=== PATIENT | male | born 1970 | race African-American/Black ===

== ENCOUNTER 2020-09-05 13:41 | Emergency (ER) | payer OTHER ==
[~2020-09-05] VITALS: Ht 177.8 cm; Wt 70.0 kg
[2020-09-05] MEDS ORDERED: IV NORMAL SALINE 1000ML BAG 1,000 ML IV ONE (14:00)
[2020-09-05 14:01] LABS: BASO # 0.1 x10^3/uL (0.0-0.2); BASO % 2 % (0-3); EOS % 1 % (0-3); LYMPH % 35 % (24-48); MEAN CORPUSCULAR HEMOGLOBIN 31 pg (25-35); MEAN CORPUSCULAR HGB CONC 34 g/dL (31-37); MEAN CORPUSCULAR VOLUME 91 fL (79-100); MONO # 0.5 x10^3/uL (0.0-1.1); MONO % 16 % (0-9); NEUT # 1.4 x10^3/uL (1.8-7.7); NEUT % 46 % (31-73); PLATELET COUNT 182 x10^3/uL (140-400); RED BLOOD COUNT 3.85 x10^6/uL (4.30-5.70); RED CELL DISTRIBUTION WIDTH 19.3 % (11.5-14.5); WHITE BLOOD COUNT 2.9 x10^3/uL (4.0-11.0)
--- NOTE | 2020-09-05 14:01 | ED.ADGEN ---
General Adult HPI: HPI: Patient is a 50 year old male coming in via EMS for chest pain. Patient's neighbors actually called EMS to this is having difficulty getting into his department. Patient's history is inconsistent likely due to alcohol intoxicati on. Says it is a cramping pain around the sternum and a little bit to the left. States it is worse with taking a deep breath. Patient originally told EMS the pain had been there for about 2 hours, then told us it been for 1.5 days, then state is been going on intermittently for weeks.. Also some epigastric pain. Patient states he had to 12 days this morning and tries to drink at least every other day, has not been drinking daily due to financial reasons. Patient states he smokes cigars, and occasional marijuana but nothing recently. Denies any other drugs. Has a history of hypertension and missed his appointment yesterday to get a refill on his blood pressure medications. Denies any history of diabetes, but has a family history. Review of Systems: Review of Systems: All other systems within normal limits except for as noted in the HPI Current Medications: Current Medications Medications (Trade) Dose Ordered Sig/Trisha Start Time Stop Time Status Last Admin Dose Admin Aspirin (Aspirin Chewable) 324 mg 1X ONCE 09/05/20 15:00 09/05/20 15:01 DC 09/05/20 15:14 324 MG Dexamethasone Sodium Phosphate (Decadron) 10 mg 1X ONCE 09/05/20 16:30 09/05/20 16:31 DC 09/05/20 16:48 10 MG Info (CONTRAST GIVEN -- Rx MONITORING) 1 each PRN DAILY PRN 09/05/20 14:45 09/05/20 17:21 DC Iohexol (Omnipaque 350 Mg/ml) 100 ml 1X ONCE 09/05/20 14:45 09/05/20 14:46 DC 09/05/20 14:45 100 ML Sodium Chloride 1,000 ml @ 1,000 mls/hr 1X ONCE 09/05/20 14:00 09/05/20 14:59 DC 09/05/20 15:14 1,000 MLS/HR Allergies: Allergies: Allergies Coded Allergies Type Severity Reaction Last Updated Verified No Known Drug Allergies 09/05/20 No Physical Exam: PE: Constitutional: Well developed, well nourished, no acute distress, non-toxic appearance. [] HENT: Normocephalic, atraumatic, bilateral external ears normal, nose normal. [] Eyes: PERRLA, conjunctiva normal, no discharge. [] Neck: No rigidity, supple, no stridor. [] Cardiovascular: Regular rate and rhythm, brisk cap refill [] Lungs & Thorax: Non labored symmetric respirations, no tachypnea or respiratory distress [] Abdomen: Soft, nondistended. Skin: Warm, dry, no erythema, no rash. [] Back: Unremarkable Extremities: No deformities, range of motion grossly intact, no lower extremity edema [] Neurologic: Alert and oriented X 3, no focal deficits noted. [] Psychologic: Affect normal, judgement normal, mood normal. [] Current Patient Data: Labs: Laboratory Tests Test 09/05/20 13:50 White Blood Count 2.9 x10^3/uL (4.0-11.0) L Red Blood Count 3.85 x10^6/uL (4.30-5.70) L Hemoglobin 12.0 g/dL (13.0-17.5) L Hematocrit 35.0 % (39.0-53.0) L Mean Corpuscular Volume 91 fL (79-100) Mean Corpuscular Hemoglobin 31 pg (25-35) Mean Corpuscular Hemoglobin Concent 34 g/dL (31-37) Red Cell Distribution Width 19.3 % (11.5-14.5) H Platelet Count 182 x10^3/uL (140-400) Neutrophils (%) (Auto) 46 % (31-73) Lymphocytes (%) (Auto) 35 % (24-48) Monocytes (%) (Auto) 16 % (0-9) H Eosinophils (%) (Auto) 1 % (0-3) Basophils (%) (Auto) 2 % (0-3) Neutrophils # (Auto) 1.4 x10^3/uL (1.8-7.7) L Lymphocytes # (Auto) 1.0 x10^3/uL (1.0-4.8) Monocytes # (Auto) 0.5 x10^3/uL (0.0-1.1) Eosinophils # (Auto) 0.0 x10^3/uL (0.0-0.7) Basophils # (Auto) 0.1 x10^3/uL (0.0-0.2) D-Dimer (Nicky) 0.70 ug/mlFEU (0.00-0.50) H Sodium Level 139 mmol/L (136-145) Potassium Level 3.7 mmol/L (3.5-5.1) Chloride Level 101 mmol/L (98-107) Carbon Dioxide Level 22 mmol/L (21-32) Anion Gap 16 (6-14) H Blood Urea Nitrogen 3 mg/dL (8-26) L Creatinine 0.6 mg/dL (0.7-1.3) L Estimated GFR (Cockcroft-Gault) 142.6 BUN/Creatinine Ratio 5 (6-20) L Glucose Level 84 mg/dL (70-99) Calcium Level 8.7 mg/dL (8.5-10.1) Phosphorus Level 4.4 mg/dL (2.6-4.7) Magnesium Level 1.8 mg/dL (1.8-2.4) Total Bilirubin 0.2 mg/dL (0.2-1.0) Aspartate Amino Transferase (AST) 233 U/L (15-37) H Alanine Aminotransferase (ALT) 94 U/L (16-63) H Alkaline Phosphatase 84 U/L (46-116) Troponin I Quantitative < 0.017 ng/mL (0.000-0.055) YS-Soq-Y-Type Natriuretic Peptide 23 pg/mL (0-124) Total Protein 7.8 g/dL (6.4-8.2) Albumin 3.5 g/dL (3.4-5.0) Albumin/Globulin Ratio 0.8 (1.0-1.7) L Lipase 116 U/L (73-393) Ethyl Alcohol Level 352 mg/dL (0-10) H Laboratory Tests 09/05/20 13:50 Laboratory Tests 09/05/20 13:50 Vital Signs: Vital Signs Date Time Temp Pulse Resp B/P (MAP) Pulse Ox O2 Delivery O2 Flow Rate FiO2 09/05/20 16:23 97 18 124/79 (94) 98 Room Air 09/05/20 13:42 98.6 98.6 EKG: EKG: Sinus rhythm, heart rate 90; left axis deviation, right ventricular hypertrophy pattern no ST elevation or depression. [] Heart Score: C/O Chest Pain: Yes HEART Score for Chest Pain: HEART Score for Chest Pain Response (Comments) Value History Moderately Suspicious 1 ECG Nonspecific Repolarizatio 1 Age >45 - < 65 1 Risk Factors 1 or 2 Risk Factors 1 Troponin < Normal Limit 0 Total 4 Risk Factors: Risk Factors: DM, Current or recent (<one month) smoker, HTN, HLP, family history of CAD, obesity. Risk Scores: Score 0 - 3: 2.5% MACE over next 6 weeks - Discharge Home Score 4 - 6: 20.3% MACE over next 6 weeks - Admit for Clinical Observation Score 7 - 10: 72.7% MACE over next 6 weeks - Early Invasive Strategies Radiology/Procedures: Radiology/Procedures: [facility] [address] [place] [address] IMAGING REPORT Signed PATIENT: JEOVANNY BACA ACCOUNT: [id number] : 1970 LOCATION: ER AGE: 50 SEX: M EXAM STATUS: REG ER ORD. PHYSICIAN: ZELDA VIVEROS MD REASON: chest pain PROCEDURE: CT ANGIOGRAPHY CHEST Examination: CT angiography chest with IV contrast HISTORY: History of chest pain Comparison: None available. TECHNIQUE: Axial CT angiographic images of chest were performed with IV contrast. Coronal and sagittal 3-D MIP reformats are performed Exposure: One or more of the following individualized dose reduction techniques were utilized for this examination: 1. Automated exposure control 2. Adjustment of the mA and/or kV according to patient size 3. Use of iterative reconstruction technique FINDINGS: The visualized thyroid gland grossly appears unremarkable. The central airways are patent. The ascending aorta measures 3.3 cm in transverse dimension. No evidence of filling defect identified in the main pulmonary arterial trunk and right and left main pulmonary arteries and visualized lobar, segmental branches of the pulmonary arteries. Faint groundglass opacities bilateral lungs throughout could be a small airway disease or infiltrates with bibasilar lung atelectasis or infiltrates. The visualized spleen grossly appears unremarkable. 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 No evidence of lytic bony destructive lesion. IMPRESSION: 1. No evidence of pulmonary embolism. 2. Faint groundglass opacities bilateral lungs throughout could be a small airway disease or aspiration or infiltrates with bibasilar lung atelectasis or infiltrates . Follow-up to resolution. 3. 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 Electronically signed by: Jose Colón MD (09/05/2020 4:00 PM) [id number] DICTATED and SIGNED BY: JOSE COLÓN MD DATE: 09/05/20 [id number] [] Course & Med Decision Making: Course & Med Decision Making Pertinent Labs and Imaging studies reviewed. (See chart for details) [] Dragon Disclaimer: Dragon Disclaimer: This electronic medical record was generated, in whole or in part, using a voice recognition dictation system. Departure Departure Impression: Primary Impression: Atypical pneumonia Additional Impression: Person under investigation for COVID-19 Disposition: 01 HOME / SELF CARE / HOMELESS Condition: STABLE Additional Instructions: You have been tested for or diagnosed with COVID-19. It is an infection caused by a new type of coronavirus. COVID-19 will cause cold-like or mild flu symptoms in most. It can cause more severe symptoms like problems breathing in some. There is no treatment for COVID-19. The body will clear the infection over time. Self-care will help to ease discomfort. Steps to Take: Self-Care Rest as needed. Healthy habits may help you feel better. Steps include: Choose healthy foods including fruits and vegetables. Drink water throughout the day. Get plenty of sleep each night. If you smoke, try to quit. It may ease breathing. Avoid alcohol. Keep Others Healthy The virus can spread to others. Droplets are released every time you sneeze or cough. The droplets can get into the mouth, nose, or eyes of people near you and lead to infection. To lower the chances of spreading COVID-19 to others: Stay at home until your doctor has said it is safe to leave. If you tested positive this will mean staying isolated until both of the following are true: At least 7 days have passed since the start of illness. You are free of fever for at least 72 hours without the use of medicine. During this time: - Avoid public areas, events, or transportation. Do not return to work or school until your doctor has said it is safe to do so. - Call ahead if you need to go to a medical center. Let them know you may have COVID-19. It will help them guide you where to go. They may also ask you to wear a facemask when you come to the office. - If you call for emergency medical services, let them know you may have COVID- 19. While at home: - Try to avoid close contact with others. Stay about 6 feet away. - If possible, spend most of your time in a separate room from others. - Use a face mask if you will be in close contact with others such as sharing a room or vehicle. - Have someone wipe down common surfaces in the home. Use household overhead cleaner maintainer every day on areas like doorknobs, counters, or sinks. - Cough or sneeze into a tissue. Throw the tissue away right after use. If a tissue is not available, cough or sneeze into your elbow. - Wash your hands often. Wash them after sneezing or coughing. Use soap and water and wash for at least 20 seconds. Alcohol based hand house cleaner can be used if soap and water is not available. - Do not prepare food for others. Avoid sharing personal items like forks, spoons, or toothbrushes. - Avoid close contact with pets while you are sick. There is no evidence of the virus passing to pets. This is a safety step until more is known about this virus. Isolation can be frustrating. Social interaction can help. Keep in touch with friends and family through phone and tech options. You can still interact with others in your home, just keep a safe distance of about 6 feet. Follow-up: Your doctors office will check in with you to see if there are any changes in your health. You may be asked to keep track of symptoms to share with them. They will also let you know when you are clear to be in public again. Problems to Look Out For: Contact your doctor if your recovery is not going as you expect. Get emergency care if you have problems such as: - Trouble breathing - Nonstop chest pain or pressure - Changes in awareness, confusion, or problems waking - Lips or face have bluish color - Worsening of symptoms If you think you have an emergency, call for emergency medical services right away. [facility] [facility] Levofloxacin (LEVOFLOXACIN) 750 Mg Tablet 1 TAB PO DAILY for antibiotic, #5 TAB Prov: ZELDA VIVEROS MD 09/05/20 Problem Qualifiers ZELDA VIVEROS MD Sep 05, 2020 14:01
[2020-09-05 14:10] LABS: CALCIUM 8.7 mg/dL (8.5-10.1); CREATININE 0.6 mg/dL (0.7-1.3); GFR 142.6; POTASSIUM 3.7 mmol/L (3.5-5.1)
[2020-09-05 14:16] LABS: ALBUMIN 3.5 g/dL (3.4-5.0); ALBUMIN/GLOBULIN RATIO 0.8 (1.0-1.7); MAGNESIUM 1.8 mg/dL (1.8-2.4); PHOSPHORUS 4.4 mg/dL (2.6-4.7); TOTAL BILIRUBIN 0.2 mg/dL (0.2-1.0); TOTAL PROTEIN 7.8 g/dL (6.4-8.2)
[2020-09-05] MEDS ORDERED: IOHEXOL 350 MG/ML 100 ML VIAL. IV ONE (14:45)
[2020-09-05] MEDS ORDERED: CONTRAST GIVEN. MC PRN (14:45)
[2020-09-05] MEDS ORDERED: ASPIRIN CHEWABLE 81 MG TABLET. PO ONE (15:00)
--- NOTE | 2020-09-05 15:42 | EKG ---
[facility] [address] [place] [address] Test Date: 2020-09-05 Test Time: 13:45:32 Pat Name: JEOVANNY BACA Department: Room: Gender: M Developmental Therapist: : 1970 Requested By: ZELDA VIVEROS Order Number: [id number] Reading MD: Measurements Intervals [place] Rate: 91 P: 55 DE: 156 QRS: -19 QRSD: 102 T: 39 QT: 362 QTc: 447 Interpretive Statements SINUS RHYTHM LEFTWARD AXIS S1,S2,S3 PATTERN CONSIDER RIGHT VENTRICULAR HYPERTROPHY POSSIBLY ABNORMAL ECG RI6.02 No previous ECG available for comparison
--- NOTE | 2020-09-05 16:02 | RAD ---
Examination: CT angiography chest with IV contrast HISTORY: History of chest pain Comparison: None available. TECHNIQUE: Axial CT angiographic images of chest were performed with IV contrast. Coronal and sagitta l 3-D MIP reformats are performed Exposure: One or more of the following individualized dose reduction techniques were utilized for thi s examination: 1. Automated exposure control 2. Adjustment of the mA and/or kV according to patient size 3. Use of iterative reconstruction technique FINDINGS: The visualized thyroid gland grossly appears unremarkable. The central airways are patent. The ascending aorta measures 3.3 cm in transverse dimension. No evidence of filling defect identified in the main pulmonary arterial trunk and right and left main pulmonary arteries and visualized lobar, segmental branches of the pulmonary arteries. Faint groundg lass opacities bilateral lungs throughout could be a small airway disease or infiltrates with bibasil ar lung atelectasis or infiltrates. The visualized spleen grossly appears unremarkable. There is a 2 cm density measuring 1 Hounsfield units identified in the left adrenal gland likely lipid rich adrena l adenoma. No evidence of lytic bony destructive lesion. IMPRESSION: 1. No evidence of pulmonary embolism. 2. Faint groundglass opacities bilateral lungs throughout could be a small airway disease or aspirat ion or infiltrates with bibasilar lung atelectasis or infiltrates . Follow-up to resolution. 3. 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 Electronically signed by: Jose Wright MD (09/05/2020 4:00 PM) [id number]
[2020-09-05 16:23] VITALS: BP 124/79
[2020-09-05] MEDS ORDERED: LEVO750T5 PO (16:26)
[2020-09-05] MEDS ORDERED: DEXAMETHASONE SOD PHOS 20 MG/5 ML VIAL. IV ONE (16:30)
--- NOTE | 2020-09-07 09:12 | NUR ---
IP: Informed pt of negative covid test. Pt verbalized understanding.
== END 2020-09-05 16:54 | disposition home or self-care (01) ==
LOC: ER 13:41
DX: J18.9 Pneumonia, unspecified organism (principal); Z20.822 Contact with and (suspected) exposure to COVID-19; F10.129 Alcohol abuse with intoxication, unspecified; Y90.8 Blood alcohol level of 240 mg/100 ml or more
CPT/HCPCS: 36415; 71275; 80053; 83690; 83735; 83880; 84100; 84484; 85025; 85379; 93005; 96361; 96374; 99285; G0480; J1100; J7030; Q9967; U0003; U0005